=== PATIENT | male | born 1970 | race American Indian/Alaskan Native ===

== ENCOUNTER 2018-12-05 10:09 | Emergency (ER) | payer SELFPAY ==
[2018-12-05 10:14] VITALS: BP 158/98
[2018-12-05] MEDS ORDERED: TETRACAINE 0.5% OPHTH SOLN 4ML OU ONE (10:53)
[2018-12-05] MEDS ORDERED: FLUORESCEIN 1 MG STRIP OP ONE (10:53)
--- NOTE | 2018-12-05 11:00 | Emergency Department Report ---
ED Eye Problem HPI - General Chief complaint: Eye Problems Stated complaint: EYE BLURY/PAINFUL Time Seen by Provider: 12/05/18 10:48 Source: patient Mode of arrival: Ambulatory Limitations: No Limitations - History of Present Illness Initial comments: Patient is a 48-year-old male who presents to emergency room with complaints of left eye irritation that began earlier this morning. pt states he feels like he has a foreign body sensation. Patient states that he does not remember getting anything in the eye that he knows of. States he has had clear eye drainage and has been rubbing the eye frequently. he states he vision seems slightly blurry. He denies any contact lens use. He states he does wear eyeglasses. He has a past medical history of hypertension and diabetes. He states he last had his eyes checked one year ago. Denies any allergies to medications. - Related Data Previous Rx's Medication Instructions Recorded Last Taken Type Erythromycin [Erythromycin Ophth 1 applic OS QID 7 Days #1 tube 12/05/18 Unknown Rx Oint] Allergies Allergy/AdvReac Type Severity Reaction Status Date / Time No Known Allergies Allergy Unverified 12/05/18 10:09 ED Review of Systems ROS: Stated complaint: EYE BLURY/PAINFUL Other details as noted in HPI Comment: All other systems reviewed and negative ED Past Medical Hx - Past Medical History Hx Hypertension: Yes Hx Diabetes: Yes - Surgical History Past Surgical History?: No - Social History Smoking Status: Never Smoker Substance Use Type: None - Medications Home Medications: Home Medications Medication Instructions Recorded Confirmed Last Taken Type Erythromycin [Erythromycin Ophth 1 applic OS QID 7 Days #1 tube 12/05/18 Unknown Rx Oint] ED Physical Exam - General Limitations: No Limitations General appearance: alert, in no apparent distress - Head Head exam: Present: atraumatic, normocephalic - Eye Eye exam: Present: PERRL, EOMI, conjunctival injection (left), other (small internal hordeolum in the left upper eyelid, fluoroscein stain and used boss lamp there is an area approximately 1 cm across the iris and bottom half of the pupil where uptake is present, no foreign body visualized) - Neurological Exam Neurological exam: Present: alert, oriented X3 - Psychiatric Psychiatric exam: Present: normal affect, normal mood - Skin Skin exam: Present: warm, dry, intact ED Course Vital Signs 12/05/18 10:11 Temperature 97.9 F Pulse Rate 81 Respiratory 16 Rate Blood Pressure 158/98 O2 Sat by Pulse 99 Oximetry ED Medical Decision Making - Medical Decision Making Patient is a 48-year-old male who presents to emergency room with complaints of left eye irritation that began earlier this morning. pt states he feels like he has a foreign body sensation. Patient states that he does not remember getting anything in the eye that he knows of. States he has had clear eye drainage and has been rubbing the eye frequently. he states he vision seems slightly blurry. He denies any contact lens use. He states he does wear eyeglasses. He has a past medical history of hypertension and diabetes. He states he last had his eyes checked one year ago. Denies any allergies to medications. VSS. on exam: left conjunctival injection, small internal hordeolum in the left upper eyelid, fluoroscein stain and used boss lamp there is an area approximately 1 cm across the iris and bottom half of the pupil where uptake is present, no foreign body visualized. examination consistent with corneal abrasion. visual acuity was tested and it was bilateral 20/15, right 20/20, left 20/50. given prescription for erythromycin ophthalmologic ointment. advised pt to please use medication as prescribed. Please wash your hands frequently. Avoid rubbing eyes. follow up with the wire stripping machine operator in the next 2-3 days. Return to the emergency room for any new or worsening symptoms. discussed the importance of follow up with an wire stripping machine operator. - Differential Diagnosis corneal abrasion, corneal ulceration, conjunctivitis, horedeolum, chalazion Critical care attestation.: If time is entered above; I have spent that time in minutes in the direct care of this critically ill patient, excluding procedure time. ED Disposition Clinical Impression: Corneal abrasion Qualifiers: Encounter type: initial encounter Laterality: left Qualified Code(s): S05.02XA - Injury of conjunctiva and corneal abrasion without foreign body, left eye, initial encounter Conjunctivitis Qualifiers: Conjunctivitis type: acute Acute conjunctivitis type: unspecified Laterality: left Qualified Code(s): H10.32 - Unspecified acute conjunctivitis, left eye Internal hordeolum of left eye Qualifiers: Eyelid: upper Qualified Code(s): H00.024 - Hordeolum internum left upper eyelid Disposition: DC-01 TO HOME OR SELFCARE Is pt being admited?: No Does the pt Need Aspirin: No Condition: Stable Instructions: Stye (ED), Corneal Abrasion (ED) Additional Instructions: Please use medication as prescribed. Please wash your hands frequently. Avoid rubbing eyes. follow up with the wire stripping machine operator in the next 2-3 days. Return to the emergency room for any new or worsening symptoms. Prescriptions: Erythromycin [Erythromycin Ophth Oint] 1 applic OS QID 7 Days #1 tube Referrals: ANA KIRK MD [Staff Physician] - 2-3 Days [facility] [Provider Group] - 2-3 Days Time of Disposition: 11:33 Print Language: MACEDONIAN
== END 2018-12-05 11:58 | disposition home or self-care (01) ==
LOC: ED 10:09
DX: S05.02XA Injury of conjunctiva and corneal abrasion without foreign body, left eye, initial encounter (principal); H10.32 Unspecified acute conjunctivitis, left eye; H00.024 Hordeolum internum left upper eyelid; I10 Essential (primary) hypertension; E11.9 Type 2 diabetes mellitus without complications; X58.XXXA Exposure to other specified factors, initial encounter; Y93.89 Activity, other specified; Y92.89 Other specified places as the place of occurrence of the external cause; Y99.8 Other external cause status